=== PATIENT | female | born 1980 | race African-American/Black ===

== ENCOUNTER → 2017-02-16 | Outpatient (CLI) | payer OTHER ==
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
== END | disposition home or self-care (01) ==
LOC: CRAD 17:50
DX: M79.675 Pain in left toe(s) (principal)
CPT/HCPCS: 73660